=== PATIENT | male | born 1985 | race Caucasian/White ===

== ENCOUNTER 2018-09-19 14:03 | Emergency (ER) | payer MEDICAID ==
[~2018-09-19] VITALS: Ht 182.9 cm; Wt 118.0 kg
[2018-09-19 14:04] VITALS: BP 150/92
[2018-09-19] MEDS ORDERED: KETOROLAC 30 MG/1 ML IM ONE (14:30)
[2018-09-19] MEDS ORDERED: COLCHICINE 0.6 MG TABLET PO ONE (14:30)
[2018-09-19] MEDS ORDERED: KETOROLAC 30 MG/1 ML ONE (15:30)
== END 2018-09-19 15:39 | disposition home or self-care (01) ==
LOC: ED 15:30
DX: M25.571 Pain in right ankle and joints of right foot (principal)
CPT/HCPCS: 73610; 96372; 99283; J1885